=== PATIENT | male | born 1990 | race Caucasian/White ===

== ENCOUNTER 2017-08-18 17:52 | Inpatient (IN) | payer MEDICARE ==
--- NOTE | 2017-08-18 18:39 | ED Physician Chart ---
ED Chief Complaint/HPI - Patient Information Date Seen:: 08/18/17 Time Seen:: 18:10 Chief Complaint:: Rectal Pain History of Present Illness:: onset x 3 days of rectal and right radha-rectal pain; and fever; pt denies trauma, discharge, hematochezia, melena, hematemesis, Abd. Pain, A/N/V/D/C, chills, or urinary s/s Allergies:: Allergies Allergy/AdvReac Type Severity Reaction Status Date / Time No Known Allergies Allergy Verified 08/18/17 18:11 Vitals:: Vital Signs - 8 hr 08/18/17 18:12 Temp 99.5 F HR 104 RR 16 BP 141/85 O2 Sat % 98 Historian:: Patient Review:: Nurse's Note Reviewed <Jesus Marquez - Last Filed: 08/18/17 18:33> - Patient Information Allergies:: Allergies Allergy/AdvReac Type Severity Reaction Status Date / Time No Known Allergies Allergy Verified 08/18/17 18:11 Vitals:: Vital Signs - 8 hr 08/18/17 18:12 Temp 99.5 F HR 104 RR 16 BP 141/85 O2 Sat % 98 <Lazaro Choi - Last Filed: 08/18/17 19:30> ED Review of Systems - Review of Systems General/Constitutional: Fever, No chills, No weight loss, No weakness, No diaphoresis, No edema, No loss of appetite Skin: No skin lesions, No rash, No bruising Head: No headache, No light-headedness Eyes: No loss of vision, No pain, No diplopia ENT: No earache, No nasal drainage, No sore throat, No tinnitus Neck: No neck pain, No swelling, No thyromegaly, No stiffness, No mass noted Cardio Vascular: No chest pain, No palpitations, No PND, No orthopnea, No edema Pulmonary: No SOB, No cough, No sputum, No wheezing GI: No nausea, No vomiting, No diarrhea, Pain, No melena, No hematochezia, No constipation, No hematemesis G/U: No dysuria, No frequency, No hematuria, No nacturia Musculoskeletal: No bone or joint pain, No back pain, No muscle pain Endocrine: No polyuria, No polydipsia Psychiatric: No prior psych history, No depression, No anxiety, No suicidal ideation, No homicidal ideation, No auditory hallucination, No visual hallucination Hematopoietic: No bruising, No lymphadenopathy Allergic/Immuno: No urticaria, No angioedema Neurological: No syncope, No focal symptoms, No weakness, No paresthesia, No headache, No seizure, No dizziness, No confusion, No vertigo <Jesus Marquez - Last Filed: 08/18/17 18:33> ED Past Medical History - Past Medical History Obtainable: Yes Past Medical History: No significant medical hx Family History: None Social History: Non Smoker, No Alcohol, No Drug Use, Single, Lives With Parents Surgical History: None Psychiatricy History: None Medication: Reviewed <Jesus Marquez Last Filed: 08/18/17 18:33> Family Medical History - Family Member Mother History Unknown: Yes <Jesus Marquez Filed: 08/18/17 18:33> ED Physical Exam - Physical Examination General/Constitutional: Awake, Well-developed, well-nourished, Alert, No distress, GCS 15, Non-toxic appearing, Ambulatory Head: Atraumatic Eyes: Lids, conjuctiva normal, PERRL, EOMI Skin: Nl inspection, No rash, No skin lesions, No ecchymosis, Well hydrated, No lymphadenopathy ENMT: External ears, nose nl, TM canals nl, Nasal exam nl, Lips, teeth, gums nl , Oropharynx nl, Tonsils nl Neck: Nontender, Full ROM w/o pain, No JVD, No nuchal rigidity, No bruit, No mass, No stridor Other Neck comments:: supple; no meningeal signs; no cervical tenderness Respiratory: Nl effort/Exclusion, Clear to Auscultation, No Wheeze/Rhonchi/Rales Cardio Vascular: RRR, No murmur, gallop, rubs, NL S1 S2, Carotid/Femoral/Distal pulses equal bilaterally GI: No tenderness/rebounding/guarding, No organomegaly, No hernia, Normal BS's, Nondistended, No mass/bruits, No McBurney tenderness Other GI comments:: no pulsatile masses; Rectal Exam: + Right Radha-Rectal Abscess : No CVA tenderness Extremities: No tenderness or effusion, Full ROM, normal strength in all extremities, No edema, Normal digits & nails Neuro/Psych: Alert/oriented, DTR's symmetric, Normal sensory exam, Normal motor strength, Judgement/insight normal, Mood normal, Normal gait, No focal deficits Misc: Normal back, No paraspinal tenderness <Jesus Marquez - Last Filed: 08/18/17 18:33> ED Labs/Radiology/EKG Results - Lab Results Results: Laboratory Tests 08/18/17 08/18/17 08/18/17 18:50 18:50 18:50 WBC 19.7 H RBC 4.57 Hgb 14.7 Hct 42.7 MCV 93.4 MCH 32.2 H MCHC Differential 34.5 RDW 11.9 Plt Count 196 MPV 8.3 PT 10.7 INR 1.03 PTT (Actin FS) 25.6 L Sodium 135 L Potassium 3.5 Chloride 101 Carbon Dioxide 25.5 Anion Gap 12.0 BUN 13 Creatinine 1.0 Est GFR ( Amer) > 60.0 Est GFR (Non-Af Amer) > 60.0 BUN/Creatinine Ratio 13.0 Glucose 100 Whole Bld Lactic Acid Calcium 9.8 Total Bilirubin 0.9 AST 14 ALT 12 Alkaline Phosphatase 74 Total Protein 8.0 Albumin 4.6 Globulin 3.4 Albumin/Globulin Ratio 1.4 08/18/17 18:50 WBC RBC Hgb Hct MCV MCH MCHC Differential RDW Plt Count MPV PT INR PTT (Actin FS) Sodium Potassium Chloride Carbon Dioxide Anion Gap BUN Creatinine Est GFR ( Amer) Est GFR (Non-Af Amer) BUN/Creatinine Ratio Glucose Whole Bld Lactic Acid 0.83 Calcium Total Bilirubin AST ALT Alkaline Phosphatase Total Protein Albumin Globulin Albumin/Globulin Ratio <Lazaro Choi - Last Filed: 08/18/17 19:30> ED Septic Shock - . Is Septic Shock (SBP<90, OR Lactate>4 mmol\L) present?: No - <6hrs of presentation: Vital Signs: Vital Signs - 8 hr 08/18/17 18:12 Temp 99.5 F HR 104 RR 16 BP 141/85 O2 Sat % 98 <Jesus Marquez - Last Filed: 08/18/17 18:33> - . Is Septic Shock (SBP<90, OR Lactate>4 mmol\L) present?: No - <6hrs of presentation: Vital Signs: Vital Signs - 8 hr 08/18/17 18:12 Temp 99.5 F HR 104 RR 16 BP 141/85 O2 Sat % 98 Assessment of Lungs: Lung CTA bilateral Assessment of Heart: RRR EKG Interpretation: NSR Capillary refill evaluation: Capillary refill < 2 secs Skin Exam: Warm, Dry, Good Turgur <Lazaro Choi - Last Filed: 08/18/17 19:30> ED Reassessment (Disposition) - Diagnosis Diagnosis:: Rectal Pain; Radha-Rectal Abscess <Jesus Marquez - Last Filed: 08/18/17 18:33> - Patient Disposition Discharge/Transfer:: Acute Care w/in this hosp Admitted to:: Med/Surg Admitting Medical Physician:: Loida Johnson Time:: 19:30 Condition at Disposition:: Stable, Improved <Lazaro Choi - Last Filed: 08/18/17 19:30>
[2017-08-18] MEDS ORDERED: Sodium Chloride 0.9% 1,000 ML IV ONE (18:41)
[2017-08-18] MEDS ORDERED: cefTRIAXone 1 GM in Sodium Chloride 0.9% 50 ML IV ONE (18:42)
[2017-08-18 19:10] LABS: MEAN CORPUSCULAR HGB CONC 34.5 pg (28.0-36.0)
[2017-08-18 19:16] LABS: HEMATOCRIT 42.7 % (41.0-60); HEMOGLOBIN 14.7 gm/dL (12-16); MEAN CELL VOLUME 93.4 fl (80-99); MEAN CORPUSCULAR HEMOGLOBIN 32.2 pg (26.0-30.0); MEAN PLATELET VOLUME 8.3 fl; PLATELET COUNT 196 Th/cmm (150-400); RED BLOOD COUNT 4.57 Mil/cmm (4.30-5.70); RED CELL DISTRIBUTION WIDTH 11.9 % (11.5-20.0)
[2017-08-18 19:18] LABS: MANUAL DIFF REQUIRED? YES; WHITE BLOOD COUNT 19.7 Th/cmm (4.8-10.8)
[2017-08-18 19:22] LABS: INR 1.03 (0.5-1.4); PROTHROMBIN TIME (TEST) 10.7 SECONDS (9.5-11.5)
[2017-08-18 19:25] LABS: ALB/GLOB RATIO 1.4 (1.0-1.8); ALBUMIN 4.6 gm/dL (4.2-5.5); ALKALINE PHOSPHATASE 74 U/L (34-104); BILIRUBIN,TOTAL 0.9 mg/dL (0.3-1.0); BUN - UREA NITROGEN 13 mg/dL (7-25); CALCIUM SERUM 9.8 mg/dL (8.6-10.3); CARBON DIOXIDE 25.5 mEq/L (21.0-31.0); CHLORIDE 101 mEq/L (98-107); GFR AFRICAN-AMERICAN > 60.0 ml/min (>90); GFR NON AFRICAN-AMERICAN > 60.0 ml/min; GLUCOSE 100 mg/dL (70-105); POTASSIUM SERUM 3.5 mEq/L (3.5-5.1); SGOT 14 U/L (13-39); SGPT/ALT 12 U/L (7-52); SODIUM SERUM 135 mEq/L (136-145)
[2017-08-18 19:56] LABS: LYMPHOCYTE 12 % (20-50); TOTAL CELLS COUNTED 100
[2017-08-18 19:57] LABS: BASOPHIL 0 % (0-3); EOSINOPHIL 0 % (0-5)
[2017-08-18 20:12] LABS: NEUTROPHILS 81 % (40-80)
[2017-08-18 20:13] LABS: BAND NEUTROPHILE 0 % (0-10); MONOCYTE 7 % (2-10)
[2017-08-18 22:06] LABS: URINE MICROSCOPIC INDICATED? YES; URINE SOURCE MIDSTREAM
[2017-08-18 22:08] LABS: URINE BILIRUBIN NEGATIVE (NEGATIVE); URINE BLOOD NEGATIVE (NEGATIVE); URINE GLUCOSE (UA) NEGATIVE (NEGATIVE); URINE KETONE TRACE mg/dL (NEGATIVE); URINE LEUKOCYTE ESTERASE NEGATIVE (NEGATIVE); URINE NITRATE NEGATIVE (NEGATIVE); URINE PROTEIN NEGATIVE (NEGATIVE)
[2017-08-18 22:14] LABS: URINE COLOR YELLOW
[2017-08-18 22:15] LABS: URINE BACTERIA NONE SEEN /hpf (NONE SEEN); URINE CLARITY CLEAR (CLEAR); URINE EPITHELIAL CELLS RARE /lpf (FEW); URINE RBC 0-2 /hpf (0-5); URINE WBC 0-2 /hpf (0-5)
[2017-08-18] MEDS ORDERED: Acetaminophen 500 MG TAB PO PRN (22:26)
[2017-08-18] MEDS ORDERED: Morphine Sulfate 4 mg/mL 1mL Syr IVP PRN (22:26)
[2017-08-18 23:07] VITALS: BP 127/74
[2017-08-19] MEDS: Sodium Chloride 0.9% 1,000 ML IV SCH ×2 (04:02→14:07)
[2017-08-19] MEDS: metroNIDAZOLE 500mg/NS 100mL 500 MG/100 ML BAG IV SCH ×3 (06:02→20:40)
[2017-08-19 06:58] LABS: % EOSINOPHILS 0.4 % (0.0-5.0); % MONOCYTES 10.2 % (2.0-10.0); % NEUTROPHILS 69.4 % (40.0-80.0); BASOPHILE ABSOLUTE 0.7 Th/cumm (0-0.2); EOSINOPHILE ABSOLUTE 0.1 Th/cmm (0.1-0.4); HEMATOCRIT 41.9 % (41.0-60); HEMOGLOBIN 14.2 gm/dL (12-16); LYMPHOCYTE ABSOLUTE 2.8 Th/cmm (1.5-3.0); MEAN CELL VOLUME 94.3 fl (80-99); MEAN CORPUSCULAR HEMOGLOBIN 31.9 pg (26.0-30.0); MEAN CORPUSCULAR HGB CONC 33.8 pg (28.0-36.0); MEAN PLATELET VOLUME 8.4 fl; MONOCYTE ABSOLUTE 1.8 Th/cmm (0.3-1.0); NEUTROPHILE ABSOLUTE 12.2 Th/cmm (1.8-8.0); PLATELET COUNT 193 Th/cmm (150-400); RED BLOOD COUNT 4.45 Mil/cmm (4.30-5.70); RED CELL DISTRIBUTION WIDTH 11.8 % (11.5-20.0)
[2017-08-19 07:01] LABS: ALB/GLOB RATIO 1.3 (1.0-1.8); ALBUMIN 4.3 gm/dL (4.2-5.5); ALKALINE PHOSPHATASE 69 U/L (34-104); ANION GAP 13.3 (7.0-16.0); BILIRUBIN,TOTAL 0.8 mg/dL (0.3-1.0); BUN - UREA NITROGEN 11 mg/dL (7-25); CALCIUM SERUM 9.5 mg/dL (8.6-10.3); CARBON DIOXIDE 23.1 mEq/L (21.0-31.0); CHLORIDE 102 mEq/L (98-107); CHOLESTEROL 120 mg/dL (<200); CREATININE - SERUM 0.9 mg/dL (0.7-1.3); GFR AFRICAN-AMERICAN > 60.0 ml/min (>90); GFR NON AFRICAN-AMERICAN > 60.0 ml/min; GLUCOSE 102 mg/dL (70-105); HDL -HIGH DENSITY LIPOPROTEIN 38 mg/dL (23-92); MAGNESIUM 2.1 mg/dL (1.9-2.7); POTASSIUM SERUM 3.4 mEq/L (3.5-5.1); SGOT 13 U/L (13-39); SGPT/ALT 12 U/L (7-52); SODIUM SERUM 135 mEq/L (136-145); TOTAL PROTEIN,SERUM 7.5 gm/dL (6.0-8.3); TRIGLYCERIDES 55 mg/dL (<150)
[2017-08-19 07:05] LABS: WHITE BLOOD COUNT 17.6 Th/cmm (4.8-10.8)
--- NOTE | 2017-08-19 08:08 | General Progress Note ---
Subjective - Review of Systems Service Date: 08/19/17 Events since last encounter: abscess left perirectal times 3 days Plan: I and D smokes Marijuana Objective - Results Result Diagrams: 08/19/17 06:10 08/19/17 06:10 Recent Labs: Laboratory Last Values WBC 17.6 Th/cmm (4.8-10.8) H 08/19/17 06:10 RBC 4.45 Mil/cmm (4.30-5.70) 08/19/17 06:10 Hgb 14.2 gm/dL (12-16) 08/19/17 06:10 Hct 41.9 % (41.0-60) 08/19/17 06:10 MCV 94.3 fl (80-99) 08/19/17 06:10 MCH 31.9 pg (26.0-30.0) H 08/19/17 06:10 MCHC Differential 33.8 pg (28.0-36.0) 08/19/17 06:10 RDW 11.8 % (11.5-20.0) 08/19/17 06:10 Plt Count 193 Th/cmm (150-400) 08/19/17 06:10 MPV 8.4 fl 08/19/17 06:10 Neutrophils % 69.4 % (40.0-80.0) 08/19/17 06:10 Band Neutrophils % 0 % (0-10) 08/18/17 18:50 Lymphocytes % 16.0 % (20.0-50.0) L 08/19/17 06:10 Monocytes % 10.2 % (2.0-10.0) H 08/19/17 06:10 Eosinophils % 0.4 % (0.0-5.0) 08/19/17 06:10 Basophils % 4.0 % (0.0-2.0) H 08/19/17 06:10 Neutrophils (Manual) 81 % (40-80) H 08/18/17 18:50 Lymphocytes 12 % (20-50) L 08/18/17 18:50 Monocytes 7 % (2-10) 08/18/17 18:50 Eosinophils 0 % (0-5) 08/18/17 18:50 Basophils 0 % (0-3) 08/18/17 18:50 PT 10.7 SECONDS (9.5-11.5) 08/18/17 18:50 INR 1.03 (0.5-1.4) 08/18/17 18:50 PTT (Actin FS) 25.6 SECONDS (26.0-38.0) L 08/18/17 18:50 Sodium 135 mEq/L (136-145) L 08/19/17 06:10 Potassium 3.4 mEq/L (3.5-5.1) L 08/19/17 06:10 Chloride 102 mEq/L (98-107) 08/19/17 06:10 Carbon Dioxide 23.1 mEq/L (21.0-31.0) 08/19/17 06:10 Anion Gap 13.3 (7.0-16.0) 08/19/17 06:10 BUN 11 mg/dL (7-25) 08/19/17 06:10 Creatinine 0.9 mg/dL (0.7-1.3) 08/19/17 06:10 Est GFR ( Amer) > 60.0 ml/min (>90) 08/19/17 06:10 Est GFR (Non-Af Amer) > 60.0 ml/min 08/19/17 06:10 BUN/Creatinine Ratio 12.2 08/19/17 06:10 Glucose 102 mg/dL (70-105) 08/19/17 06:10 Whole Bld Lactic Acid 0.83 mmol/L (0.60-1.99) 08/18/17 18:50 Calcium 9.5 mg/dL (8.6-10.3) 08/19/17 06:10 Magnesium 2.1 mg/dL (1.9-2.7) 08/19/17 06:10 Total Bilirubin 0.8 mg/dL (0.3-1.0) 08/19/17 06:10 AST 13 U/L (13-39) 08/19/17 06:10 ALT 12 U/L (7-52) 08/19/17 06:10 Alkaline Phosphatase 69 U/L (34-104) 08/19/17 06:10 C-Reactive Protein 9.4 mg/dL (0.0-0.9) H 08/18/17 18:50 Total Protein 7.5 gm/dL (6.0-8.3) 08/19/17 06:10 Albumin 4.3 gm/dL (4.2-5.5) 08/19/17 06:10 Globulin 3.2 gm/dL 08/19/17 06:10 Albumin/Globulin Ratio 1.3 (1.0-1.8) 08/19/17 06:10 Triglycerides 55 mg/dL (<150) 08/19/17 06:10 Cholesterol 120 mg/dL (<200) 08/19/17 06:10 LDL Cholesterol Direct 73 mg/dL (75-193) L 08/19/17 06:10 HDL Cholesterol 38 mg/dL (23-92) 08/19/17 06:10 Urine Source MIDSTREAM 08/18/17 22:00 Urine Color YELLOW 08/18/17 22:00 Urine Clarity CLEAR (CLEAR) 08/18/17 22:00 Urine pH 7.0 (4.6 - 8.0) 08/18/17 22:00 Ur Specific [place] 1.010 (1.005-1.030) 08/18/17 22:00 Urine Protein NEGATIVE mg/dL (NEGATIVE) 08/18/17 22:00 Urine Glucose (UA) NEGATIVE mg/dL (NEGATIVE) 08/18/17 22:00 Urine Ketones TRACE mg/dL (NEGATIVE) 08/18/17 22:00 Urine Blood NEGATIVE (NEGATIVE) 08/18/17 22:00 Urine Nitrate NEGATIVE (NEGATIVE) 08/18/17 22:00 Urine Bilirubin NEGATIVE (NEGATIVE) 08/18/17 22:00 Urine Urobilinogen 1.0 E.U./dL (0.2 - 1.0) 08/18/17 22:00 Ur Leukocyte Esterase NEGATIVE (NEGATIVE) 08/18/17 22:00 Urine RBC 0-2 /hpf (0-5) H 08/18/17 22:00 Urine WBC 0-2 /hpf (0-5) 08/18/17 22:00 Ur Epithelial Cells RARE /lpf (FEW) 08/18/17 22:00 Urine Bacteria NONE SEEN /hpf (NONE SEEN) 08/18/17 22:00 - Physical Exam Vitals and I&O: Vital Signs Temp 99.2 F 08/19/17 07:52 Pulse 97 08/19/17 07:52 Resp 18 08/19/17 07:52 BP 110/69 08/19/17 07:52 Pulse Ox 96 08/19/17 07:52 Intake & Output 08/18/17 08/19/17 08/19/17 18:59 06:59 18:59 Intake Total 100 Balance 100 Weight (lbs) 69.4 kg Intake: Oral 100 Other: # Voids 3 # Bowel Movements 0 Stool Characteristics Soft Weight Source Bedscale Active Medications: Current Medications Acetaminophen (Tylenol Extra Strength) 500 mg PO Q4HR PRN PRN Reason: FEVER AND MILD PAIN Stop: 10/17/17 22:25 Ceftriaxone Sodium 1 gm/ (Sodium Chloride) 50 mls @ 100 mls/hr IV Q24HR [facility] Stop: 10/18/17 20:59 Metronidazole (Flagyl) 500 mg in 100 mls @ 100 mls/hr IV Q8HR [facility] Stop: 10/18/17 04:59 Last Admin: 08/19/17 06:02 Dose: 100 mls/hr Sodium Chloride (Nacl 0.9%) 1,000 mls @ 100 mls/hr IV .Q10H [facility] Stop: 10/17/17 22:25 Last Admin: 08/19/17 04:02 Dose: 100 mls/hr Ketorolac Tromethamine (Toradol) 30 mg IVP Q4HR PRN PRN Reason: MODERATE PAIN Stop: 10/17/17 22:25 Morphine Sulfate (Morphine) 1 mg IVP Q4HR PRN PRN Reason: SEVERE PAIN Stop: 10/17/17 22:25
[2017-08-19 08:13] LABS: ESR SEDIMENTATION SED RATE 26 mm/hr (0-20)
--- NOTE | 2017-08-19 09:31 | Consultation ---
DATE OF CONSULTATION: 08/19/2017 SURGICAL CONSULTATION REFERRING PHYSICIAN: Dr. Johnson. REASON FOR CONSULTATION: Left perineal abscess. Thank you for referring this patient to me. HISTORY OF PRESENT ILLNESS: This is a 26-year-old male who claims he started developing an infection in the left perineal area for the last 3 days. This had become increasingly painful and large and developed a fever. He denied having had a similar problem in the past. SOCIAL HISTORY: He works at a warehouse. He admits to smoking marijuana. Denies other hard drugs. LABORATORY STUDIES: Showed the WBC at 19,700 with 81% neutrophils. The chemistry were normal. PHYSICAL EXAMINATION: There is an abscess in the right perineal area with surrounding cellulitis, very tender. PLAN: We will do I and D of the abscess and do cultures. Drug screen will be done. JOB# [id number] MTDD
[2017-08-19] MEDS ORDERED: Probiotic Screen MC PRN (11:24)
[2017-08-19] MEDS ORDERED: Propofol 10 mg/mL 20mL Vial **SURGERY USE ONLY IV ONE (11:30)
--- NOTE | 2017-08-19 12:03 | Diagnostic Imaging Report ---
Portable chest x-ray History: Shortness of breath Allowing for portable technique the heart size is normal. No focal pulmonary parenchymal processes. No hilar or mediastinal abnormalities. Impression: No acute abnormalities.
--- NOTE | 2017-08-19 14:01 | History & Physical ---
ADMIT DATE: CHIEF COMPLAINT: Rectal pain. HISTORY OF PRESENT ILLNESS: This is a 26-year-old male with no medical history who started complaining of the above-mentioned symptomatology for the last 3 days or so. The pain and irritation have gradually gotten worse, but the patient denies any discharge, any rectal bleeding or any fevers. He did report some chills a couple days ago, but not recurrent. He denies any constipation. Pertinent findings in the ER include a right perirectal abscess with no noticeable drainage. On admission, his white count was 19.7. The patient has been admitted to the medical/surgical floor for I and D. PAST MEDICAL HISTORY: None. PAST SURGICAL HISTORY: None. FAMILY HISTORY: There is diabetes in some members of his nonimmediate family. There is a brother with kidney failure who underwent a kidney transplant. SOCIAL HISTORY: Denies any tobacco, ETOH or illicit drug usage. ALLERGIES: NKDA. OUTPATIENT MEDICATIONS: Topical Vaseline for the last 3 days. REVIEW OF SYSTEMS: CONSTITUTIONAL: No fever or chills. No recent weight loss. CARDIAC: No chest pain, palpitations. PULMONARY: No cough, phlegm production. GASTROINTESTINAL: No nausea, vomiting, abdominal pain or rectal bleeding. Denies previous similar episodes. Denies constipation. GENITOURINARY: No bladder habit changes. PHYSICAL EXAMINATION: VITAL SIGNS: Temperature 99.2, pulse 97, respirations 17-18, BP 110/69, satting 96-99% on room air. GENERAL: Not in acute distress. CARDIOVASCULAR: Regular rate and rhythm without any murmurs. LUNGS: Clear to auscultation bilaterally. RECTAL: There is a moderate size perineal area of swelling and induration as well as redness, which is tender to palpation. ASSESSMENT: 1) AIDAN-RECTAL ABCESS 2) LEUKOCYTOSIS PLAN: The patient has been admitted to the medical/surgical floor for I and D. He has been placed on Rocephin, Flagyl, pain control and IV fluids. Surgical evaluation. JOB# [id number] BRIGETTE
[2017-08-19] MEDS: Lactobacillus Rhamnosus GG 15 Billion CFU CAP.SPRINK PO SCH (15:00)
--- NOTE | 2017-08-19 16:00 | Operative Report ---
DATE OF SURGERY: 08/19/2017 PREOPERATIVE DIAGNOSES: 1. Right perirectal abscess. 2. Marijuana drug abuse. POSTOPERATIVE DIAGNOSES: 1. Right perirectal abscess. 2. Marijuana drug abuse. OPERATION DONE: 1. Endoscopy. 2. Incision and drainage of abscess. SURGEON: Sonya Couch M.D. ANESTHESIA: General. ANESTHESIOLOGIST: Dr. Jones. ESTIMATED BLOOD LOSS: None. PROCEDURE: The patient was given general anesthesia. He was placed in the dorsal lithotomy position. The abscess in the right side of the perineum just 2 inches from the anus was incised. Thick purulent material was aspirated and cultures taken. Search for a fistula into the rectum was done with anoscopy and no connecting fistula was found. The wound was packed with iodoform gauze. The patient tolerated the procedure well. JOB# [id number]
[2017-08-19 16:05] LABS: AMPHETAMINE URINE NEGATIVE (NEGATIVE); BARBITURATES URINE NEGATIVE (NEGATIVE); BENZODIAZEPINES QUAL URINE NEGATIVE (NEGATIVE); CANNABINOID THC POSITIVE (NEGATIVE); COCAINE METABOLITE QUAL URINE NEGATIVE (NEGATIVE); METHADONE URINE NEGATIVE (NEGATIVE); METHAMPHETAMINES QUAL URINE NEGATIVE (NEGATIVE); OPIATES (MORPHINE) QUAL. URINE NEGATIVE (NEGATIVE); PHENCYCLIDINE (PCP) URINE NEGATIVE (NEGATIVE); TRICYCLICS (TCA) QUAL. URINE NEGATIVE (NEGATIVE)
[2017-08-19 19:08] LABS: A1C % 5.7 % (4.0-6.0)
[2017-08-19] MEDS ORDERED: cefTRIAXone 1 GM in Sodium Chloride 0.9% 50 ML IV SCH (21:00)
[2017-08-20] MEDS: Sodium Chloride 0.9% 1,000 ML IV SCH (02:01)
[2017-08-20] MEDS: metroNIDAZOLE 500mg/NS 100mL 500 MG/100 ML BAG IV SCH (05:40)
[2017-08-20 06:30] LABS: % BASOPHILS 0.2 % (0.0-2.0); % EOSINOPHILS 1.8 % (0.0-5.0); % LYMPHOCYTES 27.3 % (20.0-50.0); % MONOCYTES 9.6 % (2.0-10.0); % NEUTROPHILS 61.1 % (40.0-80.0); EOSINOPHILE ABSOLUTE 0.2 Th/cmm (0.1-0.4); HEMATOCRIT 38.8 % (41.0-60); HEMOGLOBIN 13.1 gm/dL (12-16); LYMPHOCYTE ABSOLUTE 3.4 Th/cmm (1.5-3.0); MEAN CELL VOLUME 94.5 fl (80-99); MEAN CORPUSCULAR HGB CONC 33.9 pg (28.0-36.0); MEAN PLATELET VOLUME 8.3 fl; MONOCYTE ABSOLUTE 1.2 Th/cmm (0.3-1.0); NEUTROPHILE ABSOLUTE 7.5 Th/cmm (1.8-8.0); PLATELET COUNT 193 Th/cmm (150-400); RED CELL DISTRIBUTION WIDTH 11.5 % (11.5-20.0)
[2017-08-20 06:45] LABS: WHITE BLOOD COUNT 12.3 Th/cmm (4.8-10.8)
[2017-08-20 06:50] LABS: BUN - UREA NITROGEN 12 mg/dL (7-25); CALCIUM SERUM 8.9 mg/dL (8.6-10.3); CARBON DIOXIDE 23.7 mEq/L (21.0-31.0); CHLORIDE 107 mEq/L (98-107); CREATININE - SERUM 0.9 mg/dL (0.7-1.3); GFR AFRICAN-AMERICAN > 60.0 ml/min (>90); GFR NON AFRICAN-AMERICAN > 60.0 ml/min; GLUCOSE 90 mg/dL (70-105); MAGNESIUM 2.3 mg/dL (1.9-2.7); POTASSIUM SERUM 3.7 mEq/L (3.5-5.1); SODIUM SERUM 137 mEq/L (136-145)
--- NOTE | 2017-08-20 09:02 | General Progress Note ---
Subjective - Review of Systems Service Date: 08/20/17 Events since last encounter: may DC on antibiotics tub baths bid, remove packing during bath Objective - Results Result Diagrams: 08/20/17 05:15 08/20/17 05:15 Recent Labs: Laboratory Last Values WBC 12.3 Th/cmm (4.8-10.8) H D 08/20/17 05:15 RBC 4.10 Mil/cmm (4.30-5.70) L 08/20/17 05:15 Hgb 13.1 gm/dL (12-16) 08/20/17 05:15 Hct 38.8 % (41.0-60) L 08/20/17 05:15 MCV 94.5 fl (80-99) 08/20/17 05:15 MCH 32.0 pg (26.0-30.0) H 08/20/17 05:15 MCHC Differential 33.9 pg (28.0-36.0) 08/20/17 05:15 RDW 11.5 % (11.5-20.0) 08/20/17 05:15 Plt Count 193 Th/cmm (150-400) 08/20/17 05:15 MPV 8.3 fl 08/20/17 05:15 Neutrophils % 61.1 % (40.0-80.0) 08/20/17 05:15 Band Neutrophils % 0 % (0-10) 08/18/17 18:50 Lymphocytes % 27.3 % (20.0-50.0) 08/20/17 05:15 Monocytes % 9.6 % (2.0-10.0) 08/20/17 05:15 Eosinophils % 1.8 % (0.0-5.0) 08/20/17 05:15 Basophils % 0.2 % (0.0-2.0) 08/20/17 05:15 Neutrophils (Manual) 81 % (40-80) H 08/18/17 18:50 Lymphocytes 12 % (20-50) L 08/18/17 18:50 Monocytes 7 % (2-10) 08/18/17 18:50 Eosinophils 0 % (0-5) 08/18/17 18:50 Basophils 0 % (0-3) 08/18/17 18:50 ESR 26 mm/hr (0-20) H 08/19/17 06:10 PT 10.7 SECONDS (9.5-11.5) 08/18/17 18:50 INR 1.03 (0.5-1.4) 08/18/17 18:50 PTT (Actin FS) 25.6 SECONDS (26.0-38.0) L 08/18/17 18:50 Sodium 137 mEq/L (136-145) 08/20/17 05:15 Potassium 3.7 mEq/L (3.5-5.1) 08/20/17 05:15 Chloride 107 mEq/L (98-107) 08/20/17 05:15 Carbon Dioxide 23.7 mEq/L (21.0-31.0) 08/20/17 05:15 Anion Gap 10.0 (7.0-16.0) 08/20/17 05:15 BUN 12 mg/dL (7-25) 08/20/17 05:15 Creatinine 0.9 mg/dL (0.7-1.3) 08/20/17 05:15 Est GFR ( Amer) > 60.0 ml/min (>90) 08/20/17 05:15 Est GFR (Non-Af Amer) > 60.0 ml/min 08/20/17 05:15 BUN/Creatinine Ratio 13.3 08/20/17 05:15 Glucose 90 mg/dL (70-105) 08/20/17 05:15 POC Glucose 105 MG/DL (70 - 105) 08/19/17 11:39 Hemoglobin A1c % 5.7 % (4.0-6.0) 08/19/17 06:10 Whole Bld Lactic Acid 0.83 mmol/L (0.60-1.99) 08/18/17 18:50 Calcium 8.9 mg/dL (8.6-10.3) 08/20/17 05:15 Magnesium 2.3 mg/dL (1.9-2.7) 08/20/17 05:15 Total Bilirubin 0.8 mg/dL (0.3-1.0) 08/19/17 06:10 AST 13 U/L (13-39) 08/19/17 06:10 ALT 12 U/L (7-52) 08/19/17 06:10 Alkaline Phosphatase 69 U/L (34-104) 08/19/17 06:10 C-Reactive Protein 9.4 mg/dL (0.0-0.9) H 08/18/17 18:50 Total Protein 7.5 gm/dL (6.0-8.3) 08/19/17 06:10 Albumin 4.3 gm/dL (4.2-5.5) 08/19/17 06:10 Globulin 3.2 gm/dL 08/19/17 06:10 Albumin/Globulin Ratio 1.3 (1.0-1.8) 08/19/17 06:10 Triglycerides 55 mg/dL (<150) 08/19/17 06:10 Cholesterol 120 mg/dL (<200) 08/19/17 06:10 LDL Cholesterol Direct 73 mg/dL (75-193) L 08/19/17 06:10 HDL Cholesterol 38 mg/dL (23-92) 08/19/17 06:10 Urine Source MIDSTREAM 08/18/17 22:00 Urine Color YELLOW 08/18/17 22:00 Urine Clarity CLEAR (CLEAR) 08/18/17 22:00 Urine pH 7.0 (4.6 - 8.0) 08/18/17 22:00 Ur Specific [place] 1.010 (1.005-1.030) 08/18/17 22:00 Urine Protein NEGATIVE mg/dL (NEGATIVE) 08/18/17 22:00 Urine Glucose (UA) NEGATIVE mg/dL (NEGATIVE) 08/18/17 22:00 Urine Ketones TRACE mg/dL (NEGATIVE) 08/18/17 22:00 Urine Blood NEGATIVE (NEGATIVE) 08/18/17 22:00 Urine Nitrate NEGATIVE (NEGATIVE) 08/18/17 22:00 Urine Bilirubin NEGATIVE (NEGATIVE) 08/18/17 22:00 Urine Urobilinogen 1.0 E.U./dL (0.2 - 1.0) 08/18/17 22:00 Ur Leukocyte Esterase NEGATIVE (NEGATIVE) 08/18/17 22:00 Urine RBC 0-2 /hpf (0-5) H 08/18/17 22:00 Urine WBC 0-2 /hpf (0-5) 08/18/17 22:00 Ur Epithelial Cells RARE /lpf (FEW) 08/18/17 22:00 Urine Bacteria NONE SEEN /hpf (NONE SEEN) 08/18/17 22:00 Urine Opiates Screen NEGATIVE (NEGATIVE) 08/19/17 13:20 Urine Methadone Screen NEGATIVE (NEGATIVE) 08/19/17 13:20 Ur Barbiturates Screen NEGATIVE (NEGATIVE) 08/19/17 13:20 Ur Tricyclics Screen NEGATIVE (NEGATIVE) 08/19/17 13:20 Ur Phencyclidine Scrn NEGATIVE (NEGATIVE) 08/19/17 13:20 Amphetamines Screen NEGATIVE (NEGATIVE) 08/19/17 13:20 U Methamphetamines Scrn NEGATIVE (NEGATIVE) 08/19/17 13:20 U Benzodiazepines Scrn NEGATIVE (NEGATIVE) 08/19/17 13:20 U Cocaine Metab Screen NEGATIVE (NEGATIVE) 08/19/17 13:20 U Cannabinoids Screen POSITIVE (NEGATIVE) H 08/19/17 13:20 - Physical Exam Vitals and I&O: Vital Signs Temp 98.8 F 08/20/17 04:00 Pulse 96 08/20/17 04:00 Resp 18 08/20/17 04:00 BP 112/60 08/20/17 04:00 Pulse Ox 98 08/20/17 04:00 Intake & Output 08/19/17 08/20/17 08/20/17 18:59 06:59 18:59 Intake Total 1700 1250 Balance 1700 1250 Weight (lbs) 69.4 kg 69.4 kg Intake: Intake, IV Amount 1200 1150 Sodium Chloride 0.9% 1, 1000 1000 000 ml @ 100 mls/hr IV . Q10H [facility] Rx#:[id number] cefTRIAXone 1 gm In 50 Sodium Chloride 0.9% 50 ml @ 100 mls/hr IV Q24HR [facility] Rx#:[id number] metroNIDAZOLE 500mg/NS 200 100 100mL 500 mg In 100 ml @ 100 mls/hr IV Q8HR [facility] Rx #:[id number] Oral 500 100 Other: # Voids 5 4 # Bowel Movements 0 Stool Characteristics Soft Soft Weight Source Bedscale Bedscale Active Medications: Current Medications Acetaminophen (Tylenol Extra Strength) 500 mg PO Q4HR PRN PRN Reason: FEVER AND MILD PAIN Stop: 10/17/17 22:25 Last Admin: 08/19/17 20:41 Dose: 500 mg Ceftriaxone Sodium 1 gm/ (Sodium Chloride) 50 mls @ 100 mls/hr IV Q24HR [facility] Stop: 10/18/17 20:59 Last Infusion: 08/20/17 06:26 Dose: Infused Metronidazole (Flagyl) 500 mg in 100 mls @ 100 mls/hr IV Q8HR [facility] Stop: 10/18/17 04:59 Last Admin: 08/20/17 05:40 Dose: 100 mls/hr Sodium Chloride (Nacl 0.9%) 1,000 mls @ 100 mls/hr IV .Q10H [facility] Stop: 10/17/17 22:25 Last Admin: 08/20/17 02:01 Dose: 100 mls/hr Ketorolac Tromethamine (Toradol) 30 mg IVP Q4HR PRN PRN Reason: MODERATE PAIN Stop: 10/17/17 22:25 Lactobacillus Rhamnosus (Culturelle 15b) 1 each PO DAILY [facility] Stop: 10/18/17 13:59 Last Admin: 08/19/17 15:00 Dose: 1 each Miscellaneous (Probiotic Screen) 1 ea MC PRN PRN PRN Reason: PROTOCOL Stop: 10/18/17 11:23 Morphine Sulfate (Morphine) 1 mg IVP Q4HR PRN PRN Reason: SEVERE PAIN Stop: 10/17/17 22:25 - Procedures Procedures: Procedures Procedure Code Date DRAINAGE OF RECTUM, OPEN APPROACH [id number] 08/18/17 INCISION OF RECTAL ABSCESS [id number] 08/18/17
[2017-08-20] MEDS: Lactobacillus Rhamnosus GG 15 Billion CFU CAP.SPRINK PO SCH (09:13)
--- NOTE | 2017-08-20 13:51 | Discharge Summary ---
DATE OF DISCHARGE: 08/20/2017 ADMITTING DIAGNOSES: 1. Perirectal abscess. 2. Leukocytosis. DISCHARGE DIAGNOSES: 1. Perirectal abscess -- status post incision and drainage. 2. Leukocytosis, improved. CONSULTANTS: Dr. Hassan, Surgery. PROCEDURES: He underwent incision and drainage of the perirectal abscess on 08/19/2017. DISCHARGE MEDICATIONS: Tylenol 500 mg p.o. q.4 p.r.n. for pain, ibuprofen 600 mg p.o. t.i.d. with meals x 10 days and Flagyl 500 mg q.i.d. x 10 days. Bactroban ointment 2% b.i.d. BRIEF HOSPITAL COURSE: The patient is a 26-year-old gentleman with no medical history who presented to the ED with a 3-day history of worsening rectal pain, swelling and redness. There was no discharge noted or reported. Initial labs showed a white count of 19.7 with 81% neutrophils and on physical exam, he had swelling and induration around the rectum most noticeably on the left side. The patient was admitted and placed on IV antibiotics, IV fluids and pain management. He underwent the above-mentioned procedure without any difficulties or complications. Postop day #1, he reported improvement of his pain and his leukocytosis improved to 12.3. The patient was discharged home and was given a week off from work. I instructed him to follow up with his primary care doctor within a week or so and I instructed him as well as Dr. Hassan to implement sitz baths on a daily basis. [facility]# [id number] [facility]
== END 2017-08-20 11:10 | disposition home or self-care (01) | DRG 345 ==
LOC: ER 17:52 → MSI 21:30
PROVIDERS: ADMIT Internal Medicine; ATTEND Internal Medicine
PROC: 0D9P0ZZ Drainage of Rectum, Open Approach (ICD-10-PCS; principal; 2017-08-19)
PROC: 0DJD8ZZ Inspection of Lower Intestinal Tract, Via Natural or Artificial Opening Endoscopic (ICD-10-PCS; 2017-08-19)
DX: K61.1 Rectal abscess (principal); L02.215 Cutaneous abscess of perineum; L03.315 Cellulitis of perineum; F12.10 Cannabis abuse, uncomplicated; D72.829 Elevated white blood cell count, unspecified
CPT/HCPCS: 36415-UA; 71045-TC; 80048-TC; 80053-TC; 80061-TC; 80307; 81001-TC; 82948-90; 83036-90; 83605; 83735-TC; 85007-TC; 85025-TC; 85027-TC; 85610-TC; 85652-TC; 85730-TC; 86141-TC; 87070-90; 87075-90; 87205-90; 90799; 93005; J0696; J2704; J7030; V2790; Z7610